=== PATIENT | female | born 1990 | race Caucasian/White ===

== ENCOUNTER 2018-12-07 21:57 | Emergency (ER) | payer MEDICAID ==
[~2018-12-07] VITALS: Ht 167.6 cm; Wt 151.3 kg
[~2018-12-07 21:57] MED LIST: CYCL-1 PO; METH-360 PO
[2018-12-07 23:08] VITALS: BP 144/81
[2018-12-07] MEDS ORDERED: BUPIVAcaine/PF 2.5 mg/ml (0.25%) 30ml vial IJ ONE (23:10)
[2018-12-07] MEDS ORDERED: AMOX500C2 PO (23:27)
[2018-12-07] MEDS ORDERED: IBUP-1984 PO (23:27)
[2018-12-07] MEDS ORDERED: HYDROcodone/acetaminophen 5mg/325mg tablet PO ONE (23:40)
--- NOTE | 2018-12-07 23:43 | NUR ---
PA NASH AT BEDSIDE TO PLACE NERVE BLOCK
== END 2018-12-08 00:24 | disposition home or self-care (01) ==
LOC: ER 21:58
DX: K08.89 Other specified disorders of teeth and supporting structures (principal); Z79.899 Other long term (current) drug therapy
CPT/HCPCS: 64400; 99284; J3490

== ENCOUNTER → 2023-11-15 | Emergency (ER) | payer MEDICAID, SELFPAY ==
[~2023-11-15] VITALS: Ht 167.6 cm; Wt 143.2 kg
[~2023-11-15] MED LIST changes: +CLIN-97 PO; +HYDR-3965 PO
[2023-11-15 18:15] VITALS: BP 135/82; PULSE 86; RESP 16; TEMP 98.3; O2SAT 98
== END | disposition home or self-care (01) ==
LOC: ER 15:08
DX: K08.89 Other specified disorders of teeth and supporting structures (principal); Z79.899 Other long term (current) drug therapy
CPT/HCPCS: 99283

== ENCOUNTER 2024-01-14 11:13 | Emergency (ER) | payer MEDICAID ==
[~2024-01-14] VITALS: Ht 167.6 cm; Wt 141.2 kg
[~2024-01-14 11:13] MED LIST changes: -HYDR-3965 PO
[2024-01-14] MEDS ORDERED: LOSA-415 PO (12:42)
[2024-01-14] MEDS: losartan 50mg tablet PO STA (12:56)
[2024-01-14 13:07] VITALS: BP 158/103; PULSE 86; RESP 17; TEMP 97.9; O2SAT 100
[2024-01-14] MEDS ORDERED: AMOX500C2 PO (14:44)
[2024-01-14] MEDS ORDERED: HYDR-3973 PO (14:44)
== END 2024-01-14 13:08 | disposition home or self-care (01) ==
LOC: ER 11:13
DX: I10 Essential (primary) hypertension (principal); K08.89 Other specified disorders of teeth and supporting structures; Z98.890 Other specified postprocedural states
CPT/HCPCS: 99283

== ENCOUNTER 2024-02-25 21:01 | Emergency (ER) | payer MEDICAID ==
[~2024-02-25] VITALS: Ht 167.6 cm; Wt 137.7 kg
[2024-02-25] MEDS ORDERED: ALBU8HFA INH (22:04)
[2024-02-25] MEDS ORDERED: PRED20TA PO (22:04)
[2024-02-25] MEDS: dexamethasone sod phosphate 10mg/ml inj PO STA (22:31)
[2024-02-25 22:46] VITALS: PULSE 78
[2024-02-25 22:51] VITALS: BP 140/78; RESP 18; TEMP 100.2; O2SAT 98
== END 2024-02-25 22:53 | disposition home or self-care (01) ==
LOC: ER 21:02
DX: B34.9 Viral infection, unspecified (principal); Z20.822 Contact with and (suspected) exposure to COVID-19; Z79.2 Long term (current) use of antibiotics; Z79.899 Other long term (current) drug therapy
CPT/HCPCS: 36415; 71045; 87811; 99284; J1100

== ENCOUNTER 2024-02-26 01:02 | Emergency (ER) | payer MEDICAID ==
[~2024-02-26] VITALS: Ht 167.6 cm; Wt 142.0 kg
[~2024-02-26 01:02] MED LIST changes: +ALBU8HFA INH; +PRED20TA PO
[2024-02-26 01:33] LABS: BASOPHILS % (AUTO) 0.2 % (0-1); EOSINOPHILS % (AUTO) 0.2 % (0-6); HEMOGLOBIN 10.5 g/dl (12.0-16.0); LYMPHOCYTES # (AUTO) 0.9 X10'3 (1.1-4.8); MEAN PLATELET VOLUME 8.7 FL (7.4-10.4); MONOCYTES # (AUTO) 0.3 X10'3 (0-0.9); MONOCYTES % (AUTO) 2.2 % (2-12); NEUTROPHILS # (AUTO) 11.5 X10'3 (1.8-7.7); NEUTROPHILS % (AUTO) 90.4 % (42-75); PLATELET COUNT 281 X10'3 (140-440); WHITE BLOOD COUNT 12.7 X10'3 (4.5-11.0)
[2024-02-26 01:43] LABS: HEMATOCRIT 32.7 % (35.0-45.0); MEAN CORPUSCULAR HEMOGLOBIN 20.4 PG (27.0-31.0); MEAN CORPUSCULAR VOLUME 63.7 FL (78-98); RED BLOOD COUNT 5.14 X10'6 (4.20-5.60); RED CELL DISTRIBUTION WIDTH 19.4 % (11.5-14.5)
[2024-02-26 01:47] LABS: ALANINE AMINOTRANSFERASE 18 U/L (12-78); ALBUMIN 3.3 G/DL (3.4-5.0); ALBUMIN/GLOBULIN RATIO 0.8 (1.1-1.5); ALKALINE PHOSPHATASE 87 IU/L (46-116); ANION GAP 10 (8-16); ASPARTATE AMINO TRANSFERASE 15 U/L (10-37); BILIRUBIN,TOTAL 0.4 MG/DL (0.1-1.0); BLOOD UREA NITROGEN 6 MG/DL (7-18); BUN/CREATININE RATIO 9.4 (10.0-20.0); CHLORIDE 107 MMOL/L (99-107); CREATININE 0.64 MG/DL (0.40-0.90); GLUCOSE 112 MG/DL (70-104); POTASSIUM 3.4 MMOL/L (3.5-5.1); SODIUM 141 MMOL/L (135-145); TOTAL CARBON DIOXIDE 24.4 MMOL/L (24-32); TOTAL PROTEIN 7.4 G/DL (6.4-8.2); eCRCL 116 ML/MIN; eGFR > 90 ML/MIN
[2024-02-26 02:44] VITALS: BP 164/88; PULSE 80; RESP 15; TEMP 97.9; O2SAT 95
[2024-02-26 04:16] LABS: ANISOCYTOSIS 2+; ELLIPTOCYTES 1+; MICROCYTOSIS 2+; PLATELET ESTIMATE NORMAL; SCHISTOCYTES FEW
[2024-02-26 04:17] LABS: BURR CELLS FEW
== END 2024-02-26 02:51 | disposition home or self-care (01) ==
LOC: ER 01:02
DX: I47.19 Other supraventricular tachycardia (principal); Z79.899 Other long term (current) drug therapy; Z79.52 Long term (current) use of systemic steroids; Z79.2 Long term (current) use of antibiotics
CPT/HCPCS: 36415; 80053; 85008; 85025; 93005; 99284

== ENCOUNTER 2024-08-07 18:30 | Inpatient (IN) | payer MEDICAID ==
[~2024-08-07] VITALS: Ht 167.6 cm; Wt 141.3 kg
[~2024-08-07 18:30] MED LIST changes: -ALBU8HFA INH; +AMOX-580 PO; +BENZ9GEL TOP; -PRED20TA PO
[2024-08-07 19:54] LABS: HEMATOCRIT 30.7 % (35.0-45.0); HEMOGLOBIN 9.3 g/dl (12.0-16.0); MEAN CORPUSCULAR HEMOGLOBIN 18.5 PG (27.0-31.0); MEAN CORPUSCULAR HGB CONC 30.2 g/dL (33.0-36.5); MEAN CORPUSCULAR VOLUME 61.4 FL (78-98); PLATELET COUNT 303 X10'3 (140-440); RED CELL DISTRIBUTION WIDTH 19.5 % (11.5-14.5)
[2024-08-07 19:55] LABS: BASOPHILS # (AUTO) 0.1 X10'3 (0-0.2); BASOPHILS % (AUTO) 0.3 % (0-1); EOSINOPHILS % (AUTO) 0 % (0-6); LYMPHOCYTES # (AUTO) 1.4 X10'3 (1.1-4.8); LYMPHOCYTES % (AUTO) 4.4 % (21-51); MEAN PLATELET VOLUME 8.6 FL (7.4-10.4); MONOCYTES # (AUTO) 1.8 X10'3 (0-0.9); MONOCYTES % (AUTO) 5.6 % (2-12); NEUTROPHILS # (AUTO) 28.3 X10'3 (1.8-7.7); NEUTROPHILS % (AUTO) 89.7 % (42-75)
[2024-08-07 19:58] LABS: ALBUMIN 3.1 G/DL (3.4-5.0); ANION GAP 10 (8-16); BLOOD UREA NITROGEN 9 MG/DL (7-18); BUN/CREATININE RATIO 14.1 (10.0-20.0); CALCIUM 9.2 MG/DL (8.5-10.1); CHLORIDE 102 MMOL/L (99-107); CREATININE 0.64 MG/DL (0.40-0.90); GLUCOSE 115 MG/DL (70-104); POTASSIUM 3.2 MMOL/L (3.5-5.1); SODIUM 135 MMOL/L (135-145); TOTAL CARBON DIOXIDE 22.9 MMOL/L (24-32); eCRCL 115 ML/MIN; eGFR > 90 ML/MIN
[2024-08-07 20:03] LABS: WHITE BLOOD COUNT 31.5 X10'3 (4.5-11.0)
[2024-08-07] MEDS: acetaminophen 1,000mg/100ml IV 100 ML IV ONE (20:04)
[2024-08-07 20:22] LABS: BILIRUBIN,URINE SMALL (Neg); CLARITY,URINE CLOUDY (Clear); COLOR,URINE YELLOW (Yellow); GLUCOSE, URINE NEGATIVE (Neg); KETONES,URINE 40 mg/dl (Neg); LEUKOCYTE ESTERASE ,URINE NEGATIVE (Neg); NITRITES, URINE NEGATIVE (Neg); OCCULT BLOOD,URINE LARGE (Neg); PROTEIN,URINE 100 mg/dl (Neg); UROBILINOGEN,URINE 0.2 E.U/dL (0.2-1.0)
[2024-08-07 20:28] LABS: TOTAL CELLS COUNTED 100
[2024-08-07 20:29] LABS: ANISOCYTOSIS 2+; HYPOCHROMASIA 1+; MICROCYTOSIS 1+; PLATELET ESTIMATE NORMAL; POIKILOCYTOSIS 2+
[2024-08-07] MEDS: normal saline 1000ml 1,000 ML IV ONE ×2 (20:29→21:15)
[2024-08-07 20:30] LABS: ELLIPTOCYTES 2+
[2024-08-07 20:36] LABS: UA COLLECTION TYPE CLN CATCH MIDSTREAM
[2024-08-07 20:40] LABS: BACTERIA,URINE 1+ /HPF (Neg); RBC,URINE TNTC /HPF (0-2); SQUAMOUS EPITHELIAL CELL,UR MODERATE /LPF (FEW); WBC,URINE 0-4 /HPF (0-4)
[2024-08-07] MEDS ORDERED: vancomycin inj 1,000 MG in normal saline 250ml IV soln 250 ML IV STA ×2 (20:53→21:00)
[2024-08-07] MEDS ORDERED: VANCOMYCIN 1GM 200ML H20 (PEG) 200 ML IV STA (20:57)
[2024-08-07] MEDS: CefTRIAXone/D5W-Rocephin 1gm 50 ML IV ONE (21:15)
[2024-08-07 21:28] LABS: URINE HCG NEGATIVE (NEG)
[2024-08-07] MEDS ORDERED: iohexol 300mg/ml 100ml inj. ONE (21:30)
[2024-08-07] MEDS: ondansetron/PF 4mg/2ml inj IV ONE (21:55)
[2024-08-07] MEDS: morphine 4 MG/ML inj SYRINge IV ONE (21:56)
[2024-08-07] MEDS ORDERED: NO HOME MEDS (22:33)
[2024-08-07 22:42] LABS: C-REACTIVE PROTEIN 22.09 MG/DL (0.0-0.5)
[2024-08-07] MEDS: vancomycin/NS 1 GM ADD-VANTAGE 250 ML IV STA (23:01)
[2024-08-08] VITALS (19 sets, daily range): BP systolic 100–137; BP diastolic 59–83; PULSE 76–110; RESP 11–19; TEMP 97.6–98.1; O2SAT 96–100
[2024-08-08] MEDS ORDERED: magnesium Cl slow-release 64mg tablet PO PRN (00:30)
[2024-08-08] MEDS ORDERED: magnesium sulf-water 4G/100mL 100 ML IV PRN (00:30)
[2024-08-08] MEDS ORDERED: acetaminophen 650mg rectal suppository RC PRN (00:30)
[2024-08-08] MEDS ORDERED: magnesium sulf-water 2g/50mL 50 ML IV PRN (00:30)
[2024-08-08] MEDS ORDERED: morphine 2 MG/ML inj. syringe IV PRN (00:30)
[2024-08-08] MEDS ORDERED: mag hydrox/Alum hydrox/simeth 30ml oral suspension PO PRN (00:30)
[2024-08-08] MEDS ORDERED: acetaminophen 325mg tablet PO PRN (00:30)
[2024-08-08] MEDS ORDERED: ondansetron/PF 4mg/2ml inj IV PRN ×2 (00:30→12:35)
[2024-08-08] MEDS ORDERED: magnesium hydroxide 30ml (MOM) UD suspension PO PRN (00:30)
[2024-08-08] MEDS: ketorolac trometh 15mg/ml vial 15 MG/ML ML IV ONE (01:16)
[2024-08-08] MEDS: normal saline 1000ml 1,000 ML IV SCH (01:17)
[2024-08-08] MEDS: normal saline 1000ml 1,000 ML IV ONE ×2 (01:50→02:04)
[2024-08-08] MEDS: piperacillin/tazo 4.5gm/100ml 100 ML IV ONE (02:03)
[2024-08-08] MEDS: ibuprofen tablet 400 MG TABLET PO ONE (03:05)
[2024-08-08 03:35] LABS: HEMOGLOBIN A1C 5.5 % (4.5-6.2)
[2024-08-08 03:38] LABS: CHOL/HDL RATIO 2.4 (0.00-4.99); CHOLESTEROL 101 MG/DL (0-200); HDL CHOLESTEROL 42 MG/DL (35-60); LDL CHOLESTEROL 54 MG/DL (50-100); MAGNESIUM 2.3 MG/DL (1.5-2.4); TRIGLYCERIDES 48 MG/DL (20-135)
[2024-08-08 03:56] LABS: POTASSIUM 2.8 MMOL/L (3.5-5.1)
[2024-08-08] MEDS: potassium Cl 20 mEq SR tablet PO PRN (04:52)
[2024-08-08] MEDS: HYDROcodone/acetaminophen 5mg/325mg tablet PO ONE (05:07)
[2024-08-08] MEDS: K and/or MAG REPLACEMENT MC SCH (08:00)
[2024-08-08] MEDS: docusate sod 100mg capsule PO SCH (08:00)
[2024-08-08] MEDS: heparin, porcine 5000 units/ml vial SQ SCH (08:00)
[2024-08-08] MEDS: clindamycin 600mg/D5W 50ml 50 ML IV SCH (08:30)
[2024-08-08] MEDS: ferrous sulfate 325mg tablet PO SCH (08:30)
[2024-08-08] MEDS: ringers solution, lacted 1,000 ML IV ONE (09:00)
[2024-08-08 09:16] LABS: BASOPHILS % (AUTO) 0.2 % (0-1); EOSINOPHILS # (AUTO) 0.1 X10'3 (0-0.9); EOSINOPHILS % (AUTO) 0.5 % (0-6); HEMATOCRIT 24.2 % (35.0-45.0); HEMOGLOBIN 7.5 g/dl (12.0-16.0); LYMPHOCYTES % (AUTO) 9.5 % (21-51); MEAN CORPUSCULAR HEMOGLOBIN 18.9 PG (27.0-31.0); MEAN CORPUSCULAR HGB CONC 30.9 g/dL (33.0-36.5); MEAN CORPUSCULAR VOLUME 61.1 FL (78-98); MEAN PLATELET VOLUME 8.6 FL (7.4-10.4); MONOCYTES # (AUTO) 1.4 X10'3 (0-0.9); MONOCYTES % (AUTO) 6.5 % (2-12); NEUTROPHILS # (AUTO) 17.5 X10'3 (1.8-7.7); NEUTROPHILS % (AUTO) 83.3 % (42-75); PLATELET COUNT 212 X10'3 (140-440); RED BLOOD COUNT 3.97 X10'6 (4.20-5.60); RED CELL DISTRIBUTION WIDTH 19.4 % (11.5-14.5)
[2024-08-08] MEDS: metoclopramide 5 mg/ml inj IV ONE (09:25)
[2024-08-08] MEDS: potassium Cl 40MEQ/1/2NS 520ml 520 ML IV PRN (09:26)
[2024-08-08 09:38] LABS: URINE AMPHETAMINE SCREEN NEGATIVE (Neg); URINE BARBITUATE SCREEN NEGATIVE (Neg); URINE BENZODIAZEPINES SCREEN NEGATIVE (Neg); URINE CANNABINOID SCREEN POSITIVE (Neg); URINE COCAINE SCREEN NEGATIVE (Neg); URINE METHADONE SCREEN NEGATIVE (Neg); URINE OPIATE SCREEN NEGATIVE (Neg); URINE PHENCYCLIDINE SCREEN NEGATIVE (Neg)
[2024-08-08 09:43] LABS: % IRON SATURATION 2 % (11-46); IRON 5 UG/DL (49-151); TOTAL IRON BINDING CAPACITY 279 UG/DL (259-388)
[2024-08-08 09:46] LABS: ALANINE AMINOTRANSFERASE 11 U/L (12-78); ALBUMIN 2.2 G/DL (3.4-5.0); ALBUMIN/GLOBULIN RATIO 0.6 (1.1-1.5); ALKALINE PHOSPHATASE 75 IU/L (46-116); ANION GAP 11 (8-16); ASPARTATE AMINO TRANSFERASE 13 U/L (10-37); BILIRUBIN,TOTAL 0.6 MG/DL (0.1-1.0); BLOOD UREA NITROGEN 7 MG/DL (7-18); CALCIUM 7.5 MG/DL (8.5-10.1); CHLORIDE 108 MMOL/L (99-107); CREATININE 0.54 MG/DL (0.40-0.90); FERRITIN 91 NG/ML (8-252); GLUCOSE 102 MG/DL (70-104); SODIUM 142 MMOL/L (135-145); TOTAL CARBON DIOXIDE 23.4 MMOL/L (24-32); TOTAL PROTEIN 5.6 G/DL (6.4-8.2); eCRCL 136 ML/MIN; eGFR > 90 ML/MIN
[2024-08-08 09:48] LABS: POTASSIUM 2.9 MMOL/L (3.5-5.1)
[2024-08-08] MEDS ORDERED: BUPIVAcaine 2.5mg/ml inj 50ml vial (contains preservative) ONE (10:49)
[2024-08-08] MEDS ORDERED: LIDOcaine 1% (10mg/ml)w/preservative inj. 20ml MDV ONE (10:49)
[2024-08-08] MEDS ORDERED: LIDOcaine 2% (20mg/ml) 5ml vial ONE (11:37)
[2024-08-08] MEDS ORDERED: propofol inj 20 ML IV ONE ×2 (11:37)
[2024-08-08] MEDS ORDERED: fentaNYL/PF 50MCG/1 ML 2ML syringe ONE (11:39)
[2024-08-08] MEDS ORDERED: midazolam 1 mg/ML 2ml injection ONE (11:39)
[2024-08-08] MEDS ORDERED: sevoflurane 250ml liquid IH ONE (11:40)
[2024-08-08] MEDS ORDERED: ondansetron/PF 4mg/2ml inj ONE (11:40)
[2024-08-08] MEDS ORDERED: dexamethasone sod phosphate 4mg/ml inj. ONE (11:41)
[2024-08-08] MEDS ORDERED: succinylcholine 20mg/ml inj IV ONE (11:42)
[2024-08-08] MEDS ORDERED: labetalol 20mg/4ml (5mg/ml) syringe IV PRN (12:35)
[2024-08-08] MEDS: ringers solution, lacted 1,000 ML IV SCH (12:35)
[2024-08-08] MEDS ORDERED: morphine 4 MG/ML inj SYRINge IV PRN (12:35)
[2024-08-08] MEDS ORDERED: fentaNYL/PF 50MCG/1 ML 2ML syringe IV PRN ×2 (12:35)
[2024-08-08] MEDS: BUPIVAcaine 2.5mg/ml inj 50ml vial (contains preservative) SQ ONE (12:38)
[2024-08-08] MEDS ORDERED: naloxone 0.4 mg/ml inj IV PRN (12:50)
[2024-08-08] MEDS: morphine 2 MG/ML inj. syringe IV PRN (13:54)
[2024-08-08] MEDS: piperacillin/tazo 3.375gm/50ml 50 ML IV SCH (15:43)
[2024-08-08] MEDS: lactobacillus rhamnosus 10,000 MMU CELLS/CAPSULE PO SCH (20:06)
[2024-08-08] MEDS: HYDROcodone/acetaminophen 10/325mg tab PO PRN (20:07)
[2024-08-08] MEDS: vancomycin/NS 1 GM ADD-VANTAGE 250 ML IV SCH (21:19)
[2024-08-09 04:54] LABS: BASOPHILS % (AUTO) 0.1 % (0-1); EOSINOPHILS % (AUTO) 0 % (0-6); HEMATOCRIT 25.2 % (35.0-45.0); HEMOGLOBIN 7.7 g/dl (12.0-16.0); LYMPHOCYTES # (AUTO) 1.3 X10'3 (1.1-4.8); LYMPHOCYTES % (AUTO) 5.8 % (21-51); MEAN CORPUSCULAR HEMOGLOBIN 18.8 PG (27.0-31.0); MEAN CORPUSCULAR HGB CONC 30.6 g/dL (33.0-36.5); MEAN CORPUSCULAR VOLUME 61.5 FL (78-98); MEAN PLATELET VOLUME 8.6 FL (7.4-10.4); MONOCYTES # (AUTO) 0.9 X10'3 (0-0.9); MONOCYTES % (AUTO) 4.3 % (2-12); NEUTROPHILS # (AUTO) 19.7 X10'3 (1.8-7.7); NEUTROPHILS % (AUTO) 89.8 % (42-75); PLATELET COUNT 246 X10'3 (140-440); RED BLOOD COUNT 4.09 X10'6 (4.20-5.60); RED CELL DISTRIBUTION WIDTH 19.4 % (11.5-14.5)
[2024-08-09 05:20] LABS: ALANINE AMINOTRANSFERASE 13 U/L (12-78); ALBUMIN 2.4 G/DL (3.4-5.0); ALBUMIN/GLOBULIN RATIO 0.6 (1.1-1.5); ALKALINE PHOSPHATASE 99 IU/L (46-116); ANION GAP 11 (8-16); ASPARTATE AMINO TRANSFERASE 17 U/L (10-37); BILIRUBIN,TOTAL 0.3 MG/DL (0.1-1.0); BLOOD UREA NITROGEN 9 MG/DL (7-18); CALCIUM 8.9 MG/DL (8.5-10.1); CHLORIDE 106 MMOL/L (99-107); GLUCOSE 145 MG/DL (70-104); PHOSPHORUS 2.4 MG/DL (2.3-4.5); POTASSIUM 3.9 MMOL/L (3.5-5.1); SODIUM 139 MMOL/L (135-145); TOTAL CARBON DIOXIDE 21.7 MMOL/L (24-32); TOTAL PROTEIN 6.3 G/DL (6.4-8.2); eCRCL 147 ML/MIN; eGFR > 90 ML/MIN
[2024-08-09 05:25] LABS: MAGNESIUM 1.9 MG/DL (1.5-2.4)
[2024-08-09] MEDS: vancomycin/NS 1 GM ADD-VANTAGE 250 ML IV SCH (05:54)
[2024-08-09] MEDS: famotidine/PF 10 mg/ml inj IV ONE (05:54)
[2024-08-09 06:00] VITALS: BP 134/65; PULSE 63; RESP 16; TEMP 99.4; O2SAT 98
[2024-08-09] MEDS: ascorbic acid 500mg tablet PO SCH (08:17)
[2024-08-09 08:41] VITALS: RESP 18
[2024-08-09 10:00] VITALS: BP 114/66; PULSE 63; RESP 18; TEMP 97.9; O2SAT 98
[2024-08-09 13:05] LABS: C-REACTIVE PROTEIN 17.96 MG/DL (0.0-0.5)
[2024-08-09] MEDS ORDERED: VANCOMYCIN LEVEL IV ONE (13:30)
[2024-08-09] MEDS: LORazepam 2 mg/ml vial IV PRN (14:22)
[2024-08-09] MEDS ORDERED: piperacillin/tazo 4.5gm/100ml 100 ML IV SCH (16:00)
[2024-08-09] MEDS ORDERED: LOSA-415 PO (16:18)
[2024-08-09 20:00] VITALS: BP 132/58; PULSE 80; RESP 20; TEMP 97.6; O2SAT 100
[2024-08-09] MEDS: linezolid 600mg tablet PO SCH (20:55)
[2024-08-09] MEDS: HYDROcodone/acetaminophen 5mg/325mg tablet PO PRN (21:00)
[2024-08-09 22:00] VITALS: BP 103/53; PULSE 72; RESP 14; TEMP 98.1; O2SAT 98
[2024-08-10] VITALS (13 sets, daily range): BP systolic 102–138; BP diastolic 53–84; PULSE 69–85; RESP 15–25; TEMP 95.4–98.5; O2SAT 95–100
[2024-08-10] MEDS: piperacillin/tazo 4.5gm/100ml 100 ML IV SCH (00:28)
[2024-08-10] MEDS: morphine 2 MG/ML inj. syringe IV PRN (04:51)
[2024-08-10 05:36] LABS: BASOPHILS # (AUTO) 0.1 X10'3 (0-0.2); BASOPHILS % (AUTO) 0.4 % (0-1); EOSINOPHILS # (AUTO) 0.1 X10'3 (0-0.9); EOSINOPHILS % (AUTO) 0.5 % (0-6); HEMATOCRIT 25.7 % (35.0-45.0); HEMOGLOBIN 7.7 g/dl (12.0-16.0); LYMPHOCYTES % (AUTO) 16.8 % (21-51); MEAN CORPUSCULAR HEMOGLOBIN 18.5 PG (27.0-31.0); MEAN CORPUSCULAR HGB CONC 30.2 g/dL (33.0-36.5); MEAN CORPUSCULAR VOLUME 61.4 FL (78-98); MEAN PLATELET VOLUME 8.9 FL (7.4-10.4); MONOCYTES # (AUTO) 1.2 X10'3 (0-0.9); MONOCYTES % (AUTO) 6.8 % (2-12); NEUTROPHILS # (AUTO) 13.4 X10'3 (1.8-7.7); NEUTROPHILS % (AUTO) 75.5 % (42-75); PLATELET COUNT 261 X10'3 (140-440); RED BLOOD COUNT 4.18 X10'6 (4.20-5.60); RED CELL DISTRIBUTION WIDTH 19.5 % (11.5-14.5); WHITE BLOOD COUNT 17.8 X10'3 (4.5-11.0)
[2024-08-10 06:03] LABS: ALANINE AMINOTRANSFERASE 14 U/L (12-78); ALBUMIN 2.3 G/DL (3.4-5.0); ALBUMIN/GLOBULIN RATIO 0.7 (1.1-1.5); ALKALINE PHOSPHATASE 111 IU/L (46-116); ANION GAP 10 (8-16); ASPARTATE AMINO TRANSFERASE 14 U/L (10-37); BILIRUBIN,TOTAL 0.2 MG/DL (0.1-1.0); BLOOD UREA NITROGEN 14 MG/DL (7-18); BUN/CREATININE RATIO 24.6 (10.0-20.0); C-REACTIVE PROTEIN 7.68 MG/DL (0.0-0.5); CALCIUM 8.5 MG/DL (8.5-10.1); CHLORIDE 109 MMOL/L (99-107); CREATININE 0.57 MG/DL (0.40-0.90); GLUCOSE 88 MG/DL (70-104); MAGNESIUM 2.1 MG/DL (1.5-2.4); PHOSPHORUS 3.3 MG/DL (2.3-4.5); POTASSIUM 3.4 MMOL/L (3.5-5.1); SODIUM 143 MMOL/L (135-145); TOTAL CARBON DIOXIDE 24.2 MMOL/L (24-32); TOTAL PROTEIN 5.8 G/DL (6.4-8.2); eCRCL 129 ML/MIN; eGFR > 90 ML/MIN
[2024-08-10] MEDS: losartan 25mg tablet PO SCH (08:05)
[2024-08-10] MEDS: potassium Cl 20 mEq SR tablet PO PRN (10:52)
[2024-08-10] MEDS: famotidine 20mg tablet PO ONE (15:14)
[2024-08-10] MEDS: metoclopramide 10mg tablet PO ONE (15:15)
[2024-08-10] MEDS ORDERED: midazolam 1 mg/ML 2ml injection ONE (15:57)
[2024-08-10] MEDS ORDERED: fentaNYL/PF 50MCG/1 ML 2ML syringe ONE ×2 (15:57→16:29)
[2024-08-10] MEDS ORDERED: proCHLORperazine 10 MG/2 ml inj IV PRN (16:15)
[2024-08-10] MEDS ORDERED: meperidine/PF 25mg/ml syringe IV PRN ×3 (16:15)
[2024-08-10] MEDS: ringers solution, lacted 1,000 ML IV SCH (16:15)
[2024-08-10] MEDS ORDERED: morphine 2 MG/ML inj. syringe IV PRN (16:15)
[2024-08-10] MEDS ORDERED: enalaprilat dihydrate 2.5mg/2ml vial IV PRN (16:15)
[2024-08-10] MEDS ORDERED: labetalol 20mg/4ml (5mg/ml) syringe IV PRN (16:15)
[2024-08-10] MEDS ORDERED: morphine 4 MG/ML inj SYRINge IV PRN (16:15)
[2024-08-10] MEDS ORDERED: ondansetron/PF 4mg/2ml inj IV PRN (16:15)
[2024-08-10] MEDS ORDERED: BUPIVAcaine 2.5mg/ml inj 50ml vial (contains preservative) ONE (16:16)
[2024-08-10] MEDS: BUPIVAcaine 2.5mg/ml inj 50ml vial (contains preservative) SQ ONE (16:24)
[2024-08-10] MEDS ORDERED: dexamethasone sod phosphate 4mg/ml inj. ONE (16:29)
[2024-08-10] MEDS ORDERED: propofol inj 20 ML IV ONE (16:29)
[2024-08-10] MEDS: JUVEN Shake w/Arg/Glut/Ca2+Bmb (Juven 19.3gm) pkt 240ml PO SCH (18:21)
[2024-08-11 05:02] LABS: BASOPHILS % (AUTO) 0.1 % (0-1); EOSINOPHILS % (AUTO) 0 % (0-6); HEMOGLOBIN 8.4 g/dl (12.0-16.0); MEAN CORPUSCULAR HEMOGLOBIN 18.4 PG (27.0-31.0); MEAN CORPUSCULAR HGB CONC 30.1 g/dL (33.0-36.5); MEAN PLATELET VOLUME 8.7 FL (7.4-10.4); MONOCYTES # (AUTO) 1.2 X10'3 (0-0.9); MONOCYTES % (AUTO) 6.2 % (2-12); NEUTROPHILS # (AUTO) 16.4 X10'3 (1.8-7.7); NEUTROPHILS % (AUTO) 83.7 % (42-75); PLATELET COUNT 313 X10'3 (140-440); RED BLOOD COUNT 4.59 X10'6 (4.20-5.60); RED CELL DISTRIBUTION WIDTH 19.3 % (11.5-14.5); WHITE BLOOD COUNT 19.6 X10'3 (4.5-11.0)
[2024-08-11 05:19] LABS: ALANINE AMINOTRANSFERASE 17 U/L (12-78); ALBUMIN 2.5 G/DL (3.4-5.0); ALBUMIN/GLOBULIN RATIO 0.6 (1.1-1.5); ALKALINE PHOSPHATASE 107 IU/L (46-116); ANION GAP 8 (8-16); ASPARTATE AMINO TRANSFERASE 4 U/L (10-37); BILIRUBIN,TOTAL 0.2 MG/DL (0.1-1.0); BLOOD UREA NITROGEN 7 MG/DL (7-18); BUN/CREATININE RATIO 13.5 (10.0-20.0); CALCIUM 9.2 MG/DL (8.5-10.1); CHLORIDE 107 MMOL/L (99-107); CREATININE 0.52 MG/DL (0.40-0.90); GLUCOSE 139 MG/DL (70-104); MAGNESIUM 2.1 MG/DL (1.5-2.4); PHOSPHORUS 3.3 MG/DL (2.3-4.5); POTASSIUM 3.8 MMOL/L (3.5-5.1); SODIUM 141 MMOL/L (135-145); TOTAL CARBON DIOXIDE 25.9 MMOL/L (24-32); TOTAL PROTEIN 6.4 G/DL (6.4-8.2); eCRCL 141 ML/MIN; eGFR > 90 ML/MIN
[2024-08-11 06:00] VITALS: BP 132/74; PULSE 58; RESP 20; TEMP 97.2; O2SAT 99
[2024-08-11 08:35] VITALS: RESP 16
[2024-08-11 10:00] VITALS: BP 133/77; PULSE 60; RESP 16; TEMP 96.8; O2SAT 95
[2024-08-11] MEDS ORDERED: LACT1CAP26 PO (14:37)
[2024-08-11] MEDS ORDERED: DOXY-243 PO (14:37)
[2024-08-11] MEDS ORDERED: FER325T PO (14:37)
[2024-08-11] MEDS ORDERED: VITC500T PO (14:37)
[2024-08-11] MEDS ORDERED: AMOX-580 PO (14:37)
[2024-08-11 16:20] VITALS: RESP 16
[2024-08-11] MEDS ORDERED: HYDR-3965 PO (17:11)
[2024-08-12] MEDS ORDERED: DOXY-462 PO (16:24)
== END 2024-08-11 17:11 | disposition home or self-care (01) | DRG 720 ==
LOC: ER 18:32 → ED HOLD 23:11 → SUR 3N 08-08 16:16
PROVIDERS: ADMIT Surgery; ATTEND Family Medicine
PROC: BW211ZZ Computerized Tomography (CT Scan) of Abdomen and Pelvis using Low Osmolar Contrast (ICD-10-PCS; 2024-08-07)
PROC: 0HBJXZZ Excision of Left Upper Leg Skin, External Approach (ICD-10-PCS; 2024-08-08)
PROC: 0JBB0ZZ Excision of Perineum Subcutaneous Tissue and Fascia, Open Approach (ICD-10-PCS; principal; 2024-08-10 15:50)
DX: A41.9 Sepsis, unspecified organism (principal); M72.6 Necrotizing fasciitis; L02.215 Cutaneous abscess of perineum; K61.1 Rectal abscess; Z20.822 Contact with and (suspected) exposure to COVID-19; E66.01 Morbid (severe) obesity due to excess calories; L02.31 Cutaneous abscess of buttock; F41.9 Anxiety disorder, unspecified; I10 Essential (primary) hypertension; D50.9 Iron deficiency anemia, unspecified; Z87.891 Personal history of nicotine dependence; Z68.43 Body mass index [BMI] 50.0-59.9, adult
CPT/HCPCS: 36415; 71045; 74177; 80048; 80053; 80061; 80305; 81001; 81025; 82728; 82948; 83036; 83540; 83550; 83605; 83735; 84100; 84132; 84145; 85007; 85025; 86140; 87040; 87070; 87075; 87076; 87077; 87185; 87186; 87502; 87503; 87811; 99291; 99292; A4215; A4618; A6253; A6258; A6407; A6449; A7000; G0378; J0131; J0330; J0696; J1100; J1644; J1885; J2003; J2060; J2250; J2270; J2405; J2543; J2704; J2765; J3010; J3370; J3480; J3490; J7030; J7040; J7120; Q9967